=== PATIENT | female | born 1995 | race Caucasian/White ===

== ENCOUNTER 2017-10-31 16:22 | Inpatient (IN) | payer OTHER ==
[~2017-10-31] VITALS: Ht 172.7 cm; Wt 61.0 kg
[2017-10-31] MEDS: LACTATED RINGERS 1,000 ML IV SCH ×2 (16:51→23:00)
[2017-10-31] MEDS ORDERED: OXYTOCIN 30U/ 0.9% NaCL 500ML 500 ML IV PRN (16:51)
[2017-10-31] MEDS ORDERED: OXYTOCIN 30U/ 0.9% NaCL 500ML 500 ML IV ONE (16:51)
[2017-10-31] MEDS ORDERED: D5%-LACTATED RINGERS 1,000 ML IV SCH (16:51)
[2017-10-31] MEDS ORDERED: CALCIUM CARBONATE 500 MG TAB.CHEW PO PRN (17:00)
[2017-10-31] MEDS ORDERED: ALUMINUM/MAG/SIMETHICONE 30 ML UDC PO PRN (17:00)
[2017-10-31] MEDS ORDERED: SODIUM CITRATE/CITRIC ACID 30 ML UDC PO PRN (17:00)
[2017-10-31] MEDS ORDERED: ONDANSETRON 2MG/ML, 2ML IVPush PRN (17:00)
[2017-10-31 17:19] VITALS: BP 119/74
[2017-10-31 17:38] LABS: HEMATOCRIT 38.1 % (34.6-47.8); HEMOGLOBIN 12.8 g/dL (11.7-16.4)
[2017-10-31] MEDS ORDERED: PLEASE ENTER ALLERGIES MC SCH ×2 (17:39)
[2017-10-31] MEDS ORDERED: LIDOCAINE 1%, 20ML ONE (19:20)
[2017-10-31] MEDS ORDERED: MISOPROSTOL 200 MCG TABLET ONE (19:20)
[2017-10-31] MEDS ORDERED: OXYTOCIN 30U/ 0.9% NaCL 500ML 500 ML ONE (19:20)
[2017-10-31] MEDS ORDERED: NEWBORN KIT ONE (19:20)
[2017-11-01] MEDS ORDERED: FENTANYL PF 100 MCG/2ML ONE ×2 (02:52→06:01)
[2017-11-01] MEDS: FENTANYL PF 100 MCG/2ML IVPush PRN ×2 (04:33→06:04)
[2017-11-01] MEDS: IBUPROFEN 600 MG TABLET PO PRN ×2 (07:55→21:15)
[2017-11-01] MEDS ORDERED: IBUPROFEN 600 MG TABLET ONE (07:55)
[2017-11-01] MEDS ORDERED: DIPH,PERTUSS(ACELL),TET VAC/PF NC IM-VACC PRN (08:00)
[2017-11-01] MEDS ORDERED: CARBOPROST TROMETHAMINE 250 MCG/ML, 1ML IM PRN (08:00)
[2017-11-01] MEDS ORDERED: MISOPROSTOL 200 MCG TABLET PR PRN (08:00)
[2017-11-01] MEDS ORDERED: ACETAMINOPHEN 325 MG TABLET PO PRN ×2 (08:00)
[2017-11-01] MEDS ORDERED: OXYcodone/APAP 5/325MG TABLET PO PRN ×2 (08:00)
[2017-11-01] MEDS ORDERED: METHYLERGONOVINE 0.2 MG/ML IM PRN (08:00)
[2017-11-01] MEDS ORDERED: DOCUSATE 100 MG CAPSULE PO PRN (08:00)
[2017-11-01] MEDS ORDERED: OXYTOCIN 30U/ 0.9% NaCL 500ML 500 ML ONE (08:18)
[2017-11-01] MEDS: OXYTOCIN 30U/ 0.9% NaCL 500ML 500 ML IV SCH ×2 (08:32→17:54)
[2017-11-01] MEDS: PRENATAL VIT/IRON/FA 1 EACH TABLET PO SCH (09:00)
[2017-11-01 11:30] VITALS: BP 100/62
[2017-11-01] MEDS ORDERED: PLEASE ENTER ALLERGIES MC SCH ×4 (12:30→20:30)
[2017-11-01 16:34] LABS: HEMATOCRIT 31.3 % (34.6-47.8); HEMOGLOBIN 10.6 g/dL (11.7-16.4); WHITE BLOOD COUNT 18.8 x10^3/uL (3.4-10)
[2017-11-01 19:43] VITALS: BP 96/61
[2017-11-02 00:05] VITALS: BP 94/54
[2017-11-02] MEDS: IBUPROFEN 600 MG TABLET PO PRN ×2 (03:37→09:50)
[2017-11-02] MEDS: OXYTOCIN 30U/ 0.9% NaCL 500ML 500 ML IV SCH (03:54)
[2017-11-02 05:55] VITALS: BP 94/59
[2017-11-02 08:00] VITALS: BP 99/65
[2017-11-02] MEDS: PRENATAL VIT/IRON/FA 1 EACH TABLET PO SCH (09:50)
== END 2017-11-02 14:00 | disposition home or self-care (01) | DRG 775 ==
LOC: LDOP 16:22 → INTOOBSV 16:53 → LDIP 16:53 → OBSVTOIN 16:53 → 2NW 11-01 11:11
PROVIDERS: ADMIT Obstetrics & Gynecology Maternal & Fetal Medicine; ATTEND Obstetrics & Gynecology Maternal & Fetal Medicine
PROC: 10E0XZZ Delivery of Products of Conception, External Approach (ICD-10-PCS; principal; 2017-11-01)
DX: O80 Encounter for full-term uncomplicated delivery (principal); Z37.0 Single live birth; Z3A.39 39 weeks gestation of pregnancy
CPT/HCPCS: 36415; 85025; 86850; 86900; J3010; J2590; J7120

== ENCOUNTER → 2020-03-27 | Outpatient (CLI) | payer BC, OTHER | END | disposition home or self-care (01) | LOC: CFH 10:52 | PROVIDERS: ATTEND Orthopaedic Surgery | DX: M41.87 Other forms of scoliosis, lumbosacral region (principal) | CPT/HCPCS: 72110 ==